=== PATIENT | female | born 1940 | race Caucasian/White ===

== ENCOUNTER 2019-03-03 09:42 | Emergency (ER) | payer MEDICARE, OTHER ==
[~2019-03-03] VITALS: Ht 165.1 cm; Wt 65.8 kg
[~2019-03-03 09:42] MED LIST: ACETAMINOPHEN500 MG PO; AMLODIPINE BESY10 MG PO; ARICEPT10 MG PO; ASPIRIN BUFFER325 MG PO; BIOFREEZE TOP; DULCOLAX10 MG RC; FENOFIBRATE200 MG PO; FERROUS SULFAT325 MG PO; GABAPENTIN300 MG PO; GLUCAGEN1 MG/1 ML INJ; IBUPROFEN400 MG PO; IMODIUM MULTI-1 EACH PO; LEVEMIR100 UNIT/1 INJ; LEVOTHYROXINE100 MCG PO; LEVOTHYROXINE88 MCG PO; LISINOPRIL20 MG PO; MAGNESIUM OXID400 MG PO; MECLIZINE HCL25 MG PO; METFORMIN HCL1000 MG PO; METOPROLOL TART25 MG PO; MIRALAX17 GM PO; MIRTAZAPINE30 MG PO; MULTIVITAMINS1 EAC7 PO; NAMENDA10 MG PO; NAPROSYN500 MG PO; OLANZAPINE10 MG PO; OSTEO BI-FLEX1 EAC2 PO; PRAVASTATIN SOD20 MG PO; PRILOSEC20 MG PO; SENNA-TIME S T1 EACH PO; TRADJENTA5 MG PO; TRAMADOL HCL100 MG PO; TYLENOL EXTRA500 MG PO; VITAMIN C500 M1 PO; ZANTAC150 MG PO; ZOFRAN ODT4 MG PO
--- NOTE | 2019-03-03 11:49 | Diagnostic Imaging Report ---
Exam: Left hip and pelvis, 2 views, left lower leg, 2 views History: Fall Comparison: None. 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 No periprosthetic displaced fracture. Reactive sclerosis along the xenia-articular margin. Superficial femoral arterial stent incidentally noted. Soft tissues unremarkable. Nonspecific popcorn-like pelvic calcification may represent a degenerated uterine fibroid. Lower leg: No acute, displaced fracture or dislocation. 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 No knee joint effusion. Atherosclerotic vascular calcifications. Impression: No acute osseous abnormalities of the left hip or lower leg. Status post total left hip arthroplasty with chronic superolateral subluxation of the hip joint. Signed by: Dr. Flex Callahan M.D. on 03/03/2019 11:46 AM
--- NOTE | 2019-03-03 12:11 | Diagnostic Imaging Report ---
History: Fall, head and neck pain Comparison studies:None Technique: Axial images were obtained from the brain and cervical spine. Coronal and sagittal images reconstructed from the axial data. Intravenous contrast: None Dose modulation, iterative reconstruction, and/or weight based adjustment of the mA/kV was utilized to reduce the radiation dose to as low as reasonably achievable. Findings: Head CT: Scalp/skull: No abnormalities. No fractures, blastic or lytic lesions. Brain sulci: Mildly prominent. Ventricles: Mildly prominent. No hydrocephalus. Extra-axial spaces: No masses. No fluid collections. Parenchyma: Scattered small hypodensities of the periventricular and the white matter, most commonly seen with mild chronic microvascular ischemic changes. Chronic lacunar infarct in the right striatocapsular and thalamocapsular regions. No masses, hemorrhage, acute or chronic cortical vascular insults. Sellar/suprasellar region: No abnormalities. Craniocervical junction: Patent foramen magnum. No Chiari one malformation. Atherosclerotic calcifications of the vertebral arteries and carotid siphons. Cervical spine CT: Fractures: None. Soft tissues: No gross abnormalities. Atlantoaxial articulation: Degenerative changes without acute abnormality. Alignment: Normal lordosis. No scoliosis. Cervicomedullary junction: No abnormalities. Patent foramen magnum. Vertebrae: No infection or neoplasm. Degenerative changes: At C6-7, diffuse disc osteophyte complex and bilateral uncinate process hypertrophy results in mild canal stenosis and severe bilateral foraminal narrowing. Incidental findings: Atherosclerotic calcifications of the carotid bulbs. Partially visualized is incomplete opacification of the right maxillary sinus Impression: Head CT: 1. No acute intracranial abnormality. Cervical spine CT: 1. No acute abnormalities. 2. Cannot exclude ligament, spinal cord and or vascular abnormalities on the basis of this examination. Signed by: DR Eamon Guerin M.D. on 03/03/2019 12:08 PM
[2019-03-03] MEDS ORDERED: LIDOCAINE 1% W/EPINEPHRINE 20 ML VIAL INJ ONE (14:00)
[2019-03-03] MEDS ORDERED: BACITRACIN ZINC 0.9GM TP ONE (14:00)
== END 2019-03-03 12:43 | disposition home or self-care (01) ==
LOC: ER 09:42
DX: S00.81XA Abrasion of other part of head, initial encounter (principal); S70.212A Abrasion, left hip, initial encounter; M79.662 Pain in left lower leg; M62.830 Muscle spasm of back; W06.XXXA Fall from bed, initial encounter; Y93.84 Activity, sleeping; Y92.003 Bedroom of unspecified non-institutional (private) residence as the place of occurrence of the external cause
CPT/HCPCS: 70450; 72125; 99284